=== PATIENT | male | born 1955 | race Two or more races ===

== ENCOUNTER 2023-10-02 00:50 | Emergency (ER) | payer OTHER ==
[~2023-10-02] VITALS: Ht 172.7 cm; Wt 77.1 kg
[2023-10-02] MEDS ORDERED: COZAAR50 MG (01:02)
[2023-10-02] MEDS ORDERED: UROXATRAL10 MG (01:03)
[2023-10-02] MEDS ORDERED: RINGERS SOLUTION,LACTATED 1,000 ML IV STA (02:09)
[2023-10-02] MEDS ORDERED: MEPERIDINE HCL/PF 50 MG/ML VIAL IM STA (02:10)
[2023-10-02] MEDS ORDERED: HYOSCYAMINE SULFATE 0.125 MG TAB.SUBL SL STA (02:10)
[2023-10-02] MEDS ORDERED: ONDANSETRON HCL 2 MG/ML VIAL IV STA (02:11)
[2023-10-02] MEDS ORDERED: PROMETHAZINE HCL 50 MG/ML AMPUL IM STA (02:11)
[2023-10-02 02:34] LABS: HEMATOCRIT 45.6 % (39.0-48.0); HEMOGLOBIN 15.9 g/dL (13-16.00); MEAN CELL VOLUME 86.5 fL (80.0-100.00); MEAN CORPUSCULAR HEMOGLOBIN 30.1 pg (27.00-32.0); MEAN CORPUSCULAR HGB CONC 34.9 g/dl (32.0-36.0); PLATELET COUNT 168 K/uL (150-450); RED BLOOD COUNT 5.27 M/uL (4.00-6.00); RED CELL DISTRIBUTION WIDTH 13.5 % (11.5-14.5)
[2023-10-02 02:47] LABS: INR 1.02; PARTIAL THROMBOPLASTIN TIME 29.7 SECONDS (22.0-34.0); PROTHROMBIN TIME 10.7 SECONDS (9.0-11.5)
[2023-10-02 02:54] LABS: ALBUMIN 3.7 gm/dL (3.4-5.0); BILIRUBIN TOTAL 0.82 mg/dL (0.3-1.2); CALCIUM 8.8 mg/dL (8.5-10.1); CREATININE SERUM 1.09 mg/dL (0.70-1.30); GFR 67.89; GLOBULINA 3.8 G/DL (2.4-3.5); POTASSIUM 4.27 mEq/L (3.5-5.1); TOTAL PROTEIN 7.5 gm/dL (6.4-8.2)
[2023-10-02] MEDS ORDERED: PIPERACILLIN/TAZOBACTAM SODIUM 3.375 GM in 0.9 % SODIUM CHLORIDE 100 ML IV ONE (09:15)
[2023-10-02] MEDS ORDERED: LEVSIN/SL0.125 MG SL (09:18)
[2023-10-02] MEDS ORDERED: METRONIDAZOLE500 MG PO (09:18)
[2023-10-02] MEDS ORDERED: OMEPRAZOLE40 MG PO (09:18)
[2023-10-02] MEDS ORDERED: CIPRO500 MG PO (09:18)
== END 2023-10-02 10:30 | disposition home or self-care (01) ==
LOC: ER 00:50
DX: R10.32 Left lower quadrant pain (principal); R10.9 Unspecified abdominal pain; I10 Essential (primary) hypertension
CPT/HCPCS: 36415; 74177; 96365; 96372; 99284; J2405; J2543; J2550; J3490; Q9965